=== PATIENT | male | born 1970 | race Hispanic/Latino ===

== ENCOUNTER 2025-04-26 02:52 | Inpatient (IN) | payer SELFPAY ==
[2025-04-26] VITALS (15 sets, daily range): BP systolic 118–169; BP diastolic 59–109; PULSE 55–93; RESP 11–29; TEMP 97.2–98.1; O2SAT 93–100
[~2025-04-26] VITALS: Ht 172.7 cm; Wt 96.2 kg
[2025-04-26] MEDS: SODIUM CHLORIDE 0.9% 1000ML 1,000 ML IV ONE (03:43)
[2025-04-26] MEDS: FAMOTIDINE 20 MG/2 ML VIAL IV STA (03:44)
[2025-04-26] MEDS: Morphine 4mg INJECTION 4 MG/ML INJ IV ONE (03:44)
[2025-04-26] MEDS: ONDANSETRON HCL INJ 2MG/ML 2ML 2 MG/ML VIAL IV STA (03:44)
[2025-04-26] MEDS: LABETALOL HCL 5 MG/ML 20ML VIAL IV STA ×3 (03:45→04:56)
[2025-04-26] MEDS ORDERED: SODIUM CHLORIDE 0.9% 0 ML ONE (04:19)
[2025-04-26] MEDS ORDERED: METOPROLOL TARTRATE 50 MG TAB ONE (04:26)
[2025-04-26] MEDS: METOPROLOL TARTRATE 25 MG TAB PO SCH (04:30)
[2025-04-26] MEDS ORDERED: ZOLPIDEM TARTRATE 5 MG TAB PO PRN (07:45)
[2025-04-26] MEDS ORDERED: ONDANSETRON HCL INJ 2MG/ML 2ML 2 MG/ML VIAL IV PRN (07:45)
[2025-04-26 08:09] LABS: TROPONIN I 0.103 ng/mL (0-0.300)
[2025-04-26] MEDS: LISINOPRIL 20 MG TAB PO SCH (08:51)
[2025-04-26] MEDS ORDERED: LISINOPRIL 10 MG TAB PO SCH (09:00)
[2025-04-26 17:23] LABS: TROPONIN I 0.261 ng/mL (0-0.300)
[2025-04-27] VITALS: BP 98/67; PULSE 51; RESP 16; TEMP 98.1; O2SAT 100
[2025-04-27] MEDS: APIXABAN 5 MG TABLET PO SCH (00:44)
[2025-04-27 02:00] VITALS: BP 94/63; RESP 13
[2025-04-27 05:00] VITALS: BP 119/77; PULSE 53; RESP 20; TEMP 98; O2SAT 100
[2025-04-27 06:00] VITALS: BP 120/63; PULSE 52; RESP 19; O2SAT 94
[2025-04-27 08:09] LABS: TROPONIN I 0.18 ng/mL (0-0.300)
[2025-04-27 08:26] LABS: CHOL/HDL RATIO 5.2 (3.9-4.7)
[2025-04-27] MEDS: METOPROLOL SUCCINATE 25 MG TAB XL PO SCH (08:51)
[2025-04-27 10:11] VITALS: BP 123/83; PULSE 67; RESP 15; TEMP 98; O2SAT 99
[2025-04-27] MEDS ORDERED: ELIQUIS5 MG PO (12:15)
[2025-04-27] MEDS ORDERED: TOPROL XL25 MG PO (12:15)
[2025-04-27] MEDS ORDERED: LISINOPRIL20 MG PO (12:15)
== END 2025-04-27 13:28 | disposition home or self-care (01) | DRG 305 ==
LOC: FSED 02:59 → ERHOLD 04:23 → ICU 05:43
PROVIDERS: ADMIT Internal Medicine; ATTEND Internal Medicine
DX: I16.0 Hypertensive urgency (principal); I48.92 Unspecified atrial flutter; I10 Essential (primary) hypertension; R07.89 Other chest pain; R00.0 Tachycardia, unspecified; E11.65 Type 2 diabetes mellitus with hyperglycemia; I08.2 Rheumatic disorders of both aortic and tricuspid valves; R01.1 Cardiac murmur, unspecified; R00.1 Bradycardia, unspecified; E66.01 Morbid (severe) obesity due to excess calories; Z68.32 Body mass index [BMI] 32.0-32.9, adult; Z79.899 Other long term (current) drug therapy
CPT/HCPCS: 36415; 71046; 80053; 80061; 80307; 81003; 82550; 83036; 84484; 85025; 85379; 85610; 93005; 93306; 94799; 96374; 96375; 96376; 99252; 99284; J1308; J2270; J2405; J7030; J7050